=== PATIENT | male | born 1985 | race Caucasian/White ===

== ENCOUNTER 2018-03-06 14:48 | Emergency (ER) | payer OTHER ==
[~2018-03-06] VITALS: Ht 160 cm; Wt 73.5 kg
[2018-03-06] MEDS ORDERED: GENTAK5 ML OP (16:58)
== END 2018-03-06 17:04 | disposition home or self-care (01) ==
LOC: ER 14:48
DX: H57.12 Ocular pain, left eye (principal); T15.12XA Foreign body in conjunctival sac, left eye, initial encounter; X58.XXXA Exposure to other specified factors, initial encounter; Y93.89 Activity, other specified; Y92.69 Other specified industrial and construction area as the place of occurrence of the external cause; Y99.8 Other external cause status